=== PATIENT | female | born 1945 | race Caucasian/White ===

== ENCOUNTER → 2017-03-29 | Outpatient (REF) ==
[2017-03-29 18:58] LABS: THYROID STIMULATING HORMONE 3.3 uIU/mL (0.465-4.680)
== END ==
LOC: ZLAB.WCH 18:09
PROVIDERS: Nurse Practitioner Family
DX: Z01.89 Encounter for other specified special examinations (principal)

== ENCOUNTER → 2018-04-18 | Outpatient (REF) | LOC: ZLAB.WCH 15:56 | DX: Z01.89 Encounter for other specified special examinations (principal) ==